=== PATIENT | female | born 1965 | race American Indian/Alaskan Native ===

== ENCOUNTER 2018-06-18 10:02 | Outpatient (CLI) | payer BC | END 2018-06-18 10:03 | disposition home or self-care (01) | LOC: C.MAMMO 10:03 ==

== ENCOUNTER 2018-06-25 07:47 | Day surgery (SDC) | payer BC ==
[2018-06-25] MEDS ORDERED: Propofol 10 mg/ml Inj (20 ML) ONE (09:10)
[2018-06-25] MEDS ORDERED: Lactated Ringer's 500 ML IV SCH (09:15)
[2018-06-25 09:17] VITALS: O2SAT 100
[2018-06-25] MEDS ORDERED: Simethicone 40 mg/0.6 ml Liquid (30 ml) ONE ×2 (09:23)
[2018-06-25 11:03] VITALS: BP 103/63; PULSE 56; RESP 13; TEMP 97.2
== END 2018-06-25 10:35 | disposition home or self-care (01) ==
LOC: C.ENDO 07:47
PROVIDERS: ATTEND Internal Medicine Gastroenterology
DX: Z12.11 Encounter for screening for malignant neoplasm of colon (principal); K64.1 Second degree hemorrhoids; E78.5 Hyperlipidemia, unspecified; F41.9 Anxiety disorder, unspecified
CPT/HCPCS: 84703; G0121; J2704; J3010; J7120